=== PATIENT | female | born 1990 | race Caucasian/White ===

== ENCOUNTER 2020-01-22 20:21 | Emergency (ER) | payer MEDICAID, OTHER ==
[~2020-01-22] VITALS: Ht 144.8 cm; Wt 72.6 kg
[2020-01-22 20:25] VITALS: BP 123/74
--- NOTE | 2020-01-22 20:25 | NUR ---
TO BED # 11 AMBULATORY
--- NOTE | 2020-01-22 20:55 | NUR ---
Dr. Hodge examining patient.
--- NOTE | 2020-01-22 21:11 | NUR ---
29 YEAR OLD FEMALE COMPLAINS OF RASH X 2 WEEKS. PATIENT WITH VISIBLE RED RASH IN BILATERAL LOWER EXTREMITIES. PATIENT STATES IT IS BURNING AND ITCHING. PATIENT HAS NO OTHER COMPLAINTS AT THIS TIME. PATIENT AOX4, BREATHING EVEN AND UNLABORED, SKIN WARM AND DRY. BED IN LOWEST POSITION, LOCKED, BED RAIL UPX1. PMH - DENIES ALLERGIES - NKA
[2020-01-22 21:22] LABS: BASOPHILS % (AUTO) 0.9 % (0.0-2.0); EOSINOPHILS % (AUTO) 1.2 % (0.0-4.0); HEMATOCRIT 25.2 % (36-48); HEMOGLOBIN 8.7 g/dL (12.0-16.0); LYMPHOCYTES # (AUTO) 0.9 K/uL (2.5-16.5); LYMPHOCYTES % (AUTO) 38.1 % (20.5-51.1); MEAN CORPUSCULAR HEMOGLOBIN 26 pg (27-31); MEAN CORPUSCULAR HGB CONC 34 g/dL (33-37); MEAN CORPUSCULAR VOLUME 76.4 fL (80-94); MONOCYTES # (AUTO) 0.1 K/uL (0.8-1.0); NEUTROPHILS # (AUTO) 1.3 K/uL (1.8-7.7); NEUTROPHILS % (AUTO) 53.8 % (42.2-75.2); PLATELET COUNT (AUTO) 168 K/uL (140-450); RED CELL DISTRIBUTION WIDTH 12.4 % (11.6-13.7); WHITE BLOOD COUNT (AUTO) 2.5 K/uL (4.8-10.8)
[2020-01-22 21:30] LABS: APPEARANCE,URINE CLEAR (CLEAR); BILIRUBIN,URINE NEGATIVE (NEGATIVE); BLOOD, URINE 3+ (NEGATIVE); COLOR,URINE YELLOW (YELLOW); LEUKOCYTE ESTERASE ,URINE NEGATIVE (NEGATIVE); NITRITE, URINE NEGATIVE (NEGATIVE); UGLUCOSE NEGATIVE (NEGATIVE)
[2020-01-22 21:40] LABS: PROTHROMBIN TIME 10.4 secs (10.8-13.4)
[2020-01-22 21:46] LABS: HYALINE CASTS, URINE 0-10 /LPF (None Seen); WBC,URINE 0-5 /HPF (0-5)
[2020-01-22 21:49] LABS: CARBON DIOXIDE 21.1 mmol/L (21-32); CREATININE 2.6 mg/dL (0.6-1.3); POTASSIUM 4.1 mmol/L (3.5-5.1); TOTAL BILIRUBIN 0.2 mg/dL (0.0-1.0)
[2020-01-22 22:30] VITALS: BP 124/76
--- NOTE | 2020-01-22 22:30 | NUR ---
Patient discharged with v/s stable. Provided with copy of labs. Written and verbal after care instructions given and explained. Patient alert, oriented and verbalized understanding of instructions. Ambulatory with steady gait. All questions addressed prior to discharge. ID band removed. Patient advised to follow up with PMD. Rx of Prednisone given. Patient educated on indication of medication including possible reaction and side effects. Opportunity to ask questions provided and answered.
== END 2020-01-22 22:30 | disposition home or self-care (01) ==
LOC: MED 20:21
DX: D69.2 Other nonthrombocytopenic purpura (principal)
CPT/HCPCS: 36415; 80053; 81001; 81025; 85025; 85610; 85730; 86886; 86900; 86901; 87086; 99283

== ENCOUNTER 2020-01-26 23:45 | Emergency (ER) | payer MEDICAID ==
[~2020-01-26] VITALS: Ht 144.8 cm; Wt 69.4 kg
[2020-01-26 23:50] VITALS: BP 120/56
--- NOTE | 2020-01-26 23:50 | NUR ---
TO BED # 04 AMBULATORY
--- NOTE | 2020-01-27 00:15 | NUR ---
29 YEAR OLD FEMALE STATES SHE WANTED A FOLLOWUP WITH HER LABS THAT WERE DRAWN PREVIOUSLY. PATIENT STATES THAT FOR 2 WEEKS SHE HAD A RASH ON HER LEGS AND WAS TOLD BY A PREVIOUS ER DOCTOR TO GET HER LABS REDRAWN TODAY. PATIENT AOX4, BREATHING EVEN AND UNLABORED, SKIN WARM AND DRY. BED IN LOWEST POSITION, LOCKED, BED RAIL UPX1. PMH - DENIES ALLERGIES - NKA
[2020-01-27 00:32] LABS: EOSINOPHILS % (AUTO) 0.8 % (0.0-4.0); MONOCYTES # (AUTO) 0.2 K/uL (0.8-1.0); RED BLOOD CELL COUNT(AUTO) 3.18 MIL/uL (4.20-5.40)
[2020-01-27 00:36] LABS: BASOPHILS % (AUTO) 0.7 % (0.0-2.0); HEMATOCRIT 24.4 % (36-48); HEMOGLOBIN 8.3 g/dL (12.0-16.0); LYMPHOCYTES # (AUTO) 0.8 K/uL (2.5-16.5); LYMPHOCYTES % (AUTO) 37.8 % (20.5-51.1); MEAN CORPUSCULAR HEMOGLOBIN 26 pg (27-31); MEAN CORPUSCULAR HGB CONC 34 g/dL (33-37); MEAN CORPUSCULAR VOLUME 76.6 fL (80-94); MONOCYTES % (AUTO) 7.1 % (1.7-9.3); NEUTROPHILS # (AUTO) 1.2 K/uL (1.8-7.7); NEUTROPHILS % (AUTO) 53.6 % (42.2-75.2); PLATELET COUNT (AUTO) 141 K/uL (140-450); RED CELL DISTRIBUTION WIDTH 12.5 % (11.6-13.7)
[2020-01-27 00:46] LABS: ALBUMIN 2.8 g/dL (3.4-5.0); ANION GAP 10.6 (8-16); CREATININE 2.2 mg/dL (0.6-1.3); POTASSIUM 4.6 mmol/L (3.5-5.1); TOTAL BILIRUBIN 0.2 mg/dL (0.0-1.0)
[2020-01-27 00:49] LABS: PROTHROMBIN TIME 10.4 secs (10.8-13.4)
[2020-01-27 00:52] LABS: WHITE BLOOD COUNT (AUTO) 2.2 K/uL (4.8-10.8)
[2020-01-27 01:28] VITALS: BP 121/67
--- NOTE | 2020-01-27 01:28 | NUR ---
Patient discharged with v/s stable. 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 Patient verbalized understanding. Ambulatory with steady gait. All questions addressed prior to discharge. Advised to follow up with PMD.
== END 2020-01-27 01:28 | disposition home or self-care (01) ==
LOC: MED 23:45
DX: R21 Rash and other nonspecific skin eruption (principal)
CPT/HCPCS: 36415; 80053; 85025; 85610; 99283

== ENCOUNTER 2020-05-15 16:45 | Inpatient (IN) | payer OTHER, SELFPAY ==
[~2020-05-15] VITALS: Ht 144.8 cm; Wt 73.0 kg
[2020-05-15 17:13] VITALS: BP_SYST 133; BP_SYST 89; BP_DIAS 64; BP_DIAS 89
[2020-05-15] MEDS ORDERED: NACL 0.9% 1,000 ML IV ONE ×2 (17:20→18:25)
[2020-05-15 17:39] LABS: BASOPHILS % (AUTO) 0.8 % (0.0-2.0); EOSINOPHILS % (AUTO) 0.3 % (0.0-4.0); HEMATOCRIT 20.2 % (36-48); LYMPHOCYTES # (AUTO) 0.9 K/uL (2.5-16.5); LYMPHOCYTES % (AUTO) 32.8 % (20.5-51.1); MEAN CORPUSCULAR HEMOGLOBIN 25 pg (27-31); MEAN CORPUSCULAR HGB CONC 32 g/dL (33-37); MEAN CORPUSCULAR VOLUME 78.2 fL (80-94); MONOCYTES # (AUTO) 0.1 K/uL (0.8-1.0); NEUTROPHILS # (AUTO) 1.7 K/uL (1.8-7.7); NEUTROPHILS % (AUTO) 61.1 % (42.2-75.2); PLATELET COUNT (AUTO) 146 K/uL (140-450); RED BLOOD CELL COUNT(AUTO) 2.58 MIL/uL (4.20-5.40); RED CELL DISTRIBUTION WIDTH 14.1 % (11.6-13.7); WHITE BLOOD COUNT (AUTO) 2.8 K/uL (4.8-10.8)
--- NOTE | 2020-05-15 17:45 | NUR ---
TO BED 11
--- NOTE | 2020-05-15 17:50 | NUR ---
29 Y/O FEMALE C/O FLANK PAIN X2 DAYS, RADIATING TO ABD + NAUSEA. DENIES ANY VOMITING/COUGH/SOB. PT STATES SHE WAS RECENTLY DIAGNOSED WITH LUPUS THREE MONTHS AGO AND CANNOT RECALL WHAT MEDS SHE WAS PRESCRIBED, BUT DID NOT TAKE MEDICATIONS. VSS. DENIES ANY UTI SYMPTOMS. STATES HER URINE HAS BEEN PINK-TINGED ON/OFF. RESP EVEN AND UNLABORED. LUNG SOUNDS CLEAR IN BILAT LOBES PMH: LUPUS
[2020-05-15 17:54] LABS: HEMOGLOBIN 6.5 g/dL (12.0-16.0)
[2020-05-15 18:06] LABS: ALBUMIN 2.4 g/dL (3.4-5.0); ANION GAP 15.6 (8-16); CARBON DIOXIDE 19.5 mmol/L (21-32); POTASSIUM 5.1 mmol/L (3.5-5.1); TOTAL BILIRUBIN 0.3 mg/dL (0.0-1.0)
[2020-05-15 18:09] LABS: CREATININE 5.6 mg/dL (0.6-1.3)
[2020-05-15] MEDS ORDERED: ONDANSETRON 4 MG/2 ML VIAL IM/IVP PRN (18:35)
[2020-05-15] MEDS ORDERED: ACETAMINOPHEN 325 MG TAB PO PRN (18:35)
[2020-05-15] MEDS ORDERED: DOCUSATE SODIUM 100 MG GELCAP PO PRN (18:35)
[2020-05-15] MEDS ORDERED: MORPHINE SULFATE 2 MG/ML SYR IVP PRN (18:35)
--- NOTE | 2020-05-15 19:10 | NUR ---
REPORT RECEIVED FROM [facility] FOR CONTINUATION OF CARE.
--- NOTE | 2020-05-15 19:34 | NUR ---
PT AMBULATED TO RESTROOM W/ STEADY GAIT.
[2020-05-15 19:43] LABS: PROTHROMBIN TIME 10.1 secs (10.8-13.4)
[2020-05-15 19:44] LABS: MAGNESIUM 1.7 mg/dL (1.8-2.4); PHOSPHORUS 6.9 mg/dL (2.5-4.9); THYROID STIMULATING HORMONE 1.1 uIU/mL (0.34-3.74)
[2020-05-15 19:52] LABS: BILIRUBIN,URINE 1+ (NEGATIVE); BLOOD, URINE 3+ (NEGATIVE); COLOR,URINE YELLOW (YELLOW); LEUKOCYTE ESTERASE ,URINE TRACE (NEGATIVE); NITRITE, URINE NEGATIVE (NEGATIVE); PH,URINE 6.5 (5.0-9.0); UGLUCOSE NEGATIVE (NEGATIVE)
[2020-05-15 19:54] LABS: APPEARANCE,URINE HAZY (CLEAR)
[2020-05-15 20:04] LABS: RBC,URINE TOO NUMEROUS TO COUN /HPF (0-5)
[2020-05-15 20:05] LABS: BARBITURATE, URINE NEGATIVE ng/ml (NEG <=200); BENZODIAZEPINE, URINE NEGATIVE ng/mL (NEG <=200); CANNABINOID, URINE NEGATIVE ng/mL (NEG <=50); COCAINE, URINE NEGATIVE ng/mL (NEG <=300); OPIATE, URINE NEGATIVE ng/mL (NEG <=2000); PHENCYCLIDINE SCREEN,URINE NEGATIVE ng/mL (NEG <=25)
--- NOTE | 2020-05-15 20:22 | NUR ---
Patient will be admitted to care of DR. WALKER. Admited to TELEMETRY. Will go to room 120B. Belongings list completed. Report to [facility].
--- NOTE | 2020-05-15 20:22 | NUR ---
ADMITTED 29, F, VIA GURNEY FROM [facility]. NO SOB. DENIES PAIN. INITIAL ASSESSMENT DONE. MRSA SWAB DONE AND COVID SWAB DONE. RAC 20G NOTED, INTACT AND PATENT. WILL TRANSFUSE BLOOD ONCE IT'S READY. DROPLET ISOLATION PRECAUTION IN PLACE. PLAN OF CARE WAS DISCUSSED. CALL LIGHT WITHIN REACH. WILL CONTINUE TO MONITOR.
[2020-05-15] MEDS: NACL 0.9% 1,000 ML IV SCH (21:56)
[2020-05-15] MEDS ORDERED: MAGNESIUM OXIDE 400 MG TAB PO ONE (23:10)
--- NOTE | 2020-05-15 23:45 | NUR ---
STARTED 1 PACKED RBC TRANSFUSION. NO A/R NOTED. TOLERATED WELL. WILL CONTINUE TO MONITOR AND CHECKED V/S PER PROTOCOL.
[2020-05-16] VITALS: BP 134/69
--- NOTE | 2020-05-16 | NUR ---
STAYED WITH THE PATIENT. AND OBSERVED FOR ANY REACTION. NO A/R NOTED. NO SOB. DENIES PAIN. PATIENT IS CALM AND COMFORTABLE AND AWAKE. WILL CONTINUE TO MONITOR.
--- NOTE | 2020-05-16 02:45 | NUR ---
BLOOD TRANSFUSION FINISHED. NO A/R NOTED. NO SOB. WILL CONTINUE TO MONITOR
[2020-05-16 04:00] VITALS: BP 128/83
--- NOTE | 2020-05-16 04:00 | NUR ---
PATIENT IS RESTING. DENIES PAIN. CALL LIGHT WITHIN REACH.
[2020-05-16] MEDS: NACL 0.9% 1,000 ML IV SCH ×3 (05:00→15:56)
--- NOTE | 2020-05-16 06:45 | NUR ---
PATIENT IS TACHYCARDIC ON THE 120'S-127. DR. PEREZ IS AWARE. PATIENT IS NOT IN ANY ACUTE DISTRESS, COOPERATIVE AND CALM. WILL ENDORSED TO AM SHIFT RN FOR CONTINUITY OF CARE.
--- NOTE | 2020-05-16 07:23 | NUR ---
RECEIVED BEDSIDE REPORT FROM ARTILLERY SPECIALIST NURSE, FOR CONTINUITY OF CARE. PT IS AA&OX4, AMERICAN SPEAKING. RESPIRATIONS ARE EVEN AND UNLABORED, BREATHING TO RA. SKIN COLOR APPROPRIATE FOR ETHNICITY. RAC 20G IV IS PATENT AND INTACT, RUNNING ORDERED. PT IS AWARE URINE SAMPLE IS NEEDED. REVIEWED PLAN OF CARE WITH PT, WITH PT VERBALIZING UNDERSTANDING. SAFETY MEASURES IN PLACE; CALL LIGHT WITHIN REACH, BED IN LOW POSITION, SIGNS POSTED. TELE MONITOR ATTACHED. NO DISTRESS NOTED. WILL CONTINUE TO MONITOR.
[2020-05-16 08:00] VITALS: BP 132/82
[2020-05-16 08:31] LABS: BASOPHILS % (AUTO) 0.8 % (0.0-2.0); HEMATOCRIT 22.7 % (36-48); HEMOGLOBIN 7.4 g/dL (12.0-16.0); LYMPHOCYTES # (AUTO) 1.2 K/uL (2.5-16.5); LYMPHOCYTES % (AUTO) 36.5 % (20.5-51.1); MEAN CORPUSCULAR HEMOGLOBIN 26 pg (27-31); MEAN CORPUSCULAR HGB CONC 33 g/dL (33-37); MEAN CORPUSCULAR VOLUME 79.6 fL (80-94); MONOCYTES # (AUTO) 0.2 K/uL (0.8-1.0); MONOCYTES % (AUTO) 5.5 % (1.7-9.3); NEUTROPHILS # (AUTO) 1.9 K/uL (1.8-7.7); NEUTROPHILS % (AUTO) 57.2 % (42.2-75.2); PLATELET COUNT (AUTO) 126 K/uL (140-450); RED BLOOD CELL COUNT(AUTO) 2.85 MIL/uL (4.20-5.40); RED CELL DISTRIBUTION WIDTH 14.9 % (11.6-13.7); WHITE BLOOD COUNT (AUTO) 3.3 K/uL (4.8-10.8)
[2020-05-16 09:27] LABS: ANION GAP 16.8 (8-16); POTASSIUM 4.8 mmol/L (3.5-5.1)
[2020-05-16] MEDS: BENZONATATE 100 MG CAPLF PO SCH ×3 (09:27→19:09)
[2020-05-16 09:29] LABS: CREATININE 5.1 mg/dL (0.6-1.3)
--- NOTE | 2020-05-16 09:30 | NUR ---
RECEIVED A CALL FROM LAB REPORTING A CRITICAL LAB; CREATININE: 5.1. SCHEDULED PO MEDICATION GIVEN. PT TOLERATED PO MED WELL. MEDICATION EDUCATION PROVIDED. URINE SPECIMEN COLLECTED, WILL BRING TO LAB. NO DISRRTRESS NPTED. WILL CONTINUE TO MONITOR.
[2020-05-16 11:06] LABS: CHOL/HDL RATIO 7.1 (1-4.5)
[2020-05-16 11:14] LABS: MAGNESIUM 1.6 mg/dL (1.8-2.4); PHOSPHORUS 5.9 mg/dL (2.5-4.9)
[2020-05-16 12:00] VITALS: BP 135/78
[2020-05-16 12:40] LABS: URINE TOTAL PROTEIN 964.1 mg/dL (0-12)
--- NOTE | 2020-05-16 14:07 | NUR ---
SCHEDULED PO MEDICATION GIVEN. PT TOLERATED PO MED WELL. MEDICATION EDUCATION PROVIDED. NO DISTRESS NOTED. WILL CONTINUE TO MONITOR.
--- NOTE | 2020-05-16 14:45 | NUR ---
PT'S IV INFILTRATED. WILL ATTEMPT REINSERTION.
--- NOTE | 2020-05-16 15:55 | NUR ---
NEW IV SITE ESTABLISHED; RT HAND, 22G.
[2020-05-16 16:00] VITALS: BP 130/83
[2020-05-16] MEDS ORDERED: SODIUM FERRIC GLUCONATE 125 MG in NACL 0.9% 100 ML IV SCH (16:00)
--- NOTE | 2020-05-16 16:59 | NUR ---
IV FERRLECIT, HUNG, AND RUNNING PER ORDERS. INFLUENZA A/B SPECIMEN COLLECTED. PT INSTRUCTED ON 24 HR URINE COLLECTION. HAT IN PLACE. PT IS AWARE TO INFORM NURSE WHEN SHE VOIDS. NO DISTRESS NOTED. WILL CONTINUE TO MONITOR.
[2020-05-16] MEDS ORDERED: MAG SULF 2000 MG/WATER PREMIX 100 ML IV SCH (17:00)
--- NOTE | 2020-05-16 18:08 | NUR ---
PT IS OFF UNIT FOR VQ LUNG SCAN.
[2020-05-16] MEDS: methylPREDNISolone SS 125 MG/2 ML VIAL IVP SCH (19:05)
--- NOTE | 2020-05-16 19:08 | NUR ---
PT'S SCHEDULED MEDICATIONS GIVEN. MAGNESIUM HUNG, AND RUNNING PER ORDERS. PT COMPLAINS OF COUGH AND STATES THAT SHE FEELS LIKE SHE "IS GOING TO SUFFOCATE" WHEN SHE LIES DOWN, AND FEELS LIKE SHE NEEDS TO BE SITTING UP TO BREATH. DR HENDRICKS AWARE. PER DR SANTO, O2 CAN BE STARTED AT 2LPM VIA NC. WILL ENDORSE TO ROAD SERVICE LOCKSMITH NURSE.
--- NOTE | 2020-05-16 19:25 | NUR ---
ENDORSED TO VICE PROVOST NURSE FOR CONTINUITY OF CARE. PT IS IN STABLE CONDITION.
--- NOTE | 2020-05-16 19:25 | NUR ---
RECEIVED PT AAOX4 , W/ ON AND OFF VERY SLIGHTLY PT'S DESCRIBE - WILL REFER TO RT ON DUTY FOR FURTHER ASSESSMENT AND RESPITORY. MGT . O2 SAT BET 91 AND 93% - WILL UPDATE THE AMIRA . FOR 24HRS URINE COLLECTION RE INSTRUCTED TO PT. W/ ON GOING MAG . RIDER - IV SITE INTACT AND PATENT . SAFETY MEASURE IN PLACE - CALL LIGHT WITHIN REACH . ON TELE MONITOR - HIGHTEST TRACING ON TELE MONITOR - IS 146 - NO C/O OF CHEST PAIN.- DENIES ANY PAIN . PLAN OF CARE DISCUSSED AND VERBALIZE UNDERSTANDING . FOR CLOSELY WATCH .
[2020-05-16 19:38] LABS: BASOPHILS % (AUTO) 0.7 % (0.0-2.0); EOSINOPHILS % (AUTO) 0.1 % (0.0-4.0); HEMOGLOBIN 7.4 g/dL (12.0-16.0); LYMPHOCYTES # (AUTO) 1.5 K/uL (2.5-16.5); LYMPHOCYTES % (AUTO) 41.4 % (20.5-51.1); MEAN CORPUSCULAR HEMOGLOBIN 26 pg (27-31); MEAN CORPUSCULAR HGB CONC 32 g/dL (33-37); MEAN CORPUSCULAR VOLUME 80.1 fL (80-94); MONOCYTES # (AUTO) 0.2 K/uL (0.8-1.0); MONOCYTES % (AUTO) 5.2 % (1.7-9.3); NEUTROPHILS % (AUTO) 52.6 % (42.2-75.2); PLATELET COUNT (AUTO) 128 K/uL (140-450); RED BLOOD CELL COUNT(AUTO) 2.87 MIL/uL (4.20-5.40); RED CELL DISTRIBUTION WIDTH 15.5 % (11.6-13.7); WHITE BLOOD COUNT (AUTO) 3.7 K/uL (4.8-10.8)
[2020-05-16 20:00] VITALS: BP 113/96
--- NOTE | 2020-05-16 20:23 | NUR ---
PT WAS PLACED ON 2LNC HR 123 SPO2 98%
--- NOTE | 2020-05-16 20:35 | NUR ---
ASSESED BY RT - RT PUT PT . ON O2 AT 2LPM/NC - AMIRA - INFORM. WILL CONT. TO MONITOR.
--- NOTE | 2020-05-16 21:00 | NUR ---
AFTER PT PUT ON O2 AT 2LPM/NC HER HR TRENDING DOWN FROM 14O'S TO 12O'S - FOR CLOSELY WATCH . - UPDATE AMIRA.PT. DENIES ANY PAIN . 02 SAT 96%. ON TELE MONITOR.
--- NOTE | 2020-05-16 21:21 | NUR ---
MAG . RIDER CONSUMED - RE HOOK NSS AND REGULATED ORDERED - FOR CLOSELY WATCH.
--- NOTE | 2020-05-16 22:00 | NUR ---
MADE ROUNDS , NO COMPLAIN MADE AT THIS TIME . O2 SAT WNL . ON TELE MONITOR . MONITOR U.O - ON CLOSELY WATCH .
[2020-05-17] VITALS: BP 115/85
--- NOTE | 2020-05-17 | NUR ---
MADE ROUNDS . NO COMPLAIN MADE P- O2 SAT WNL . ON TELE MONITOR .- HR 111. FOR CLOSELY WATCH .
--- NOTE | 2020-05-17 01:52 | NUR ---
MADE ROUNDS /. RESTING ON BED . O2 SAT WNL . ON CLOSELY WATCH .
[2020-05-17 04:00] VITALS: BP 130/92
--- NOTE | 2020-05-17 04:00 | NUR ---
MADE ROUNDS , NO S/SX OF ACUTE DISTRESS NOTED . ON TELE MONITOR .
[2020-05-17] MEDS: NACL 0.9% 1,000 ML IV SCH ×2 (05:16→11:57)
--- NOTE | 2020-05-17 06:00 | NUR ---
NO COMPLAIN MADE - REMINDS HER TO CALL THE NOD - STILL FOR 24HRS URINE COLLECTION - WILL ENDORSE.
[2020-05-17 06:36] LABS: BASOPHILS % (AUTO) 0.8 % (0.0-2.0); HEMATOCRIT 22.4 % (36-48); HEMOGLOBIN 7.3 g/dL (12.0-16.0); LYMPHOCYTES # (AUTO) 0.6 K/uL (2.5-16.5); MEAN CORPUSCULAR HEMOGLOBIN 26 pg (27-31); MEAN CORPUSCULAR HGB CONC 33 g/dL (33-37); MONOCYTES # (AUTO) 0.1 K/uL (0.8-1.0); MONOCYTES % (AUTO) 4.7 % (1.7-9.3); NEUTROPHILS # (AUTO) 1.4 K/uL (1.8-7.7); NEUTROPHILS % (AUTO) 65.5 % (42.2-75.2); PLATELET COUNT (AUTO) 135 K/uL (140-450); RED BLOOD CELL COUNT(AUTO) 2.79 MIL/uL (4.20-5.40); RED CELL DISTRIBUTION WIDTH 15.2 % (11.6-13.7); WHITE BLOOD COUNT (AUTO) 2.2 K/uL (4.8-10.8)
[2020-05-17 06:53] LABS: ANION GAP 17.4 (8-16); CARBON DIOXIDE 14.9 mmol/L (21-32); POTASSIUM 5.3 mmol/L (3.5-5.1)
--- NOTE | 2020-05-17 06:55 | NUR ---
RELEY TO DR. SANTO THE LATEST CREATININE RESULT 4.8 - NO FURTHER ORDERS MADE AT THIS TIME.
[2020-05-17 06:56] LABS: CREATININE 4.8 mg/dL (0.6-1.3)
[2020-05-17 06:59] LABS: MAGNESIUM 2.3 mg/dL (1.8-2.4); PHOSPHORUS 6.9 mg/dL (2.5-4.9)
--- NOTE | 2020-05-17 07:20 | NUR ---
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
--- NOTE | 2020-05-17 07:25 | NUR ---
RECEIVED BEDSIDE REPORT FROM NIGHTSHIFT NURSE. PT RESTING IN BED. RESPIRATIONS EVEN AND UNLABORED WITH NO SOB OR RESPIRATORY DISTRESS. SKIN WARM AND DRY TO TOUCH R HAND 22G IS CLEAN, DRY, AND INTACT. SAFETY MEASURES IN PLACE. WILL CONTINUE TO MONITOR
[2020-05-17 08:00] VITALS: BP 147/91
[2020-05-17 08:09] LABS: FOLIC ACID 6.7 ng/mL (>3.0)
--- NOTE | 2020-05-17 09:13 | NUR ---
PATIENT HAS BEEN SCREENED AND CATEGORIZED MODERATE NUTRITION RISK. PATIENT WILL BE SEEN WITHIN 3-5 DAYS OF ADMISSION. 05/18/20 05/20/[address]
--- NOTE | 2020-05-17 09:30 | NUR ---
ADMINISTERED SCHED MED PRESCRIBED PER MD ORDER. PT TOLERATED WELL. MEDICATION EDUCATION PERFORMED. PT RETURNED DEMONSTRATION. SAFETY MEASURES IN PLACE. WILL CONTINUE TO MONITOR
[2020-05-17] MEDS: BENZONATATE 100 MG CAPLF PO SCH ×3 (09:38→16:52)
--- NOTE | 2020-05-17 09:50 | NUR ---
PT SIGNED AUTHORIZATION OF DISCLOSURE OF MEDICAL INFORMATION FROM [facility] CONSENT FORM. PILLING MACHINE OPERATOR SENT FORM OUT. AWAITING INFORMATION. SAFETY MEASURES IN PLACE. WILL CONTINUE TO MONITOR
--- NOTE | 2020-05-17 11:15 | NUR ---
HOURLY ROUNDING. PT RESTING IN BED. FLACC 0. RESPIRATIONS EVEN AND UNLABORED WITH NO SOB OR RESPIRATORY DISTRESS. SKIN WARM AND DRY TO TOUCH. SAFETY MEASURES IN PLACE. WILL CONTINUE TO MONITOR
[2020-05-17 12:00] VITALS: BP 145/94
--- NOTE | 2020-05-17 13:09 | NUR ---
ADMINISTERED SCHED MED PRESCRIBED PER MD ORDER. PT TOLERATED WELL. MEDICATION EDUCATION PERFORMED. PT RETURNED DEMONSTRATION. SAFETY MEASURES IN PLACE. WILL CONTINUE TO MONITOR
--- NOTE | 2020-05-17 13:19 | NUR ---
INFORMED PT THAT WE NEED STOOL SAMPLE FROM HER. PT VERBALIZED UNDERSTANDING. HAT PLACED ON TOILET. SAFETY MEASURES IN PLACE. WILL CONTINUE TO MONITOR
--- NOTE | 2020-05-17 15:38 | NUR ---
HOURLY ROUNDING. PT RESTING IN BED AND TALKING TO FAMILY ON THE PHONE. RESPIRATIONS EVEN AND UNLABORED WITH NO SOB OR RESPIRATORY DISTRESS. SKIN WARM AND DRY TO TOUCH. SAFETY MEASURES IN PLACE. WILL CONTINUE TO MONITOR
[2020-05-17 16:00] VITALS: BP 131/85
[2020-05-17] MEDS: methylPREDNISolone SS 125 MG/2 ML VIAL IVP SCH (16:53)
--- NOTE | 2020-05-17 17:00 | NUR ---
C-DIFF AND STOOL CULTURE SAMPLE COLLECTED AND SENT TO LAB. PT TOLERATED WELL. SAFETY MEASURES IN PLACE. WILL CONTINUE TO MONITOR
[2020-05-17] MEDS: SODIUM BICARBONATE 8.4% 50 MEQ in NACL 0.45% 1,000 ML IV SCH (17:18)
--- NOTE | 2020-05-17 17:20 | NUR ---
ADMINISTERED SCHED MED PRESCRIBED PER MD ORDER. PT TOLERATED WELL. MEDICATION EDUCATION PERFORMED. PT RETURNED DEMONSTRATION. SAFETY MEASURES IN PLACE. WILL CONTINUE TO MONITOR
--- NOTE | 2020-05-17 18:26 | NUR ---
HOURLY ROUNDING. PT RESTING IN BED. RESPIRATIONS EVEN AND UNLABORED WITH NO SOB OR RESPIRATORY DISTRESS. SKIN WARM AND DRY TO TOUCH. SAFETY MEASURES IN PLACE. WILL CONTINUE TO MONITOR
--- NOTE | 2020-05-17 19:27 | NUR ---
ENDORSED AT BEDSIDE TO NIGHTSHIFT NURSE FOR CONTINUITY OF CARE. PT IS STABLE
--- NOTE | 2020-05-17 19:30 | NUR ---
RECEIVED REPORT AT BEDSIDE FOR Sabrina LUNDY RN DAYSHIFT NURSE. PT IS AOX4 ON 2 LITERS N/C. SHE DENIES PAIN AT THIS TIME IV SITE 22G IN RIGHT HAND INTACT AND ASYMPTOMATIC V/S FOLLOWS: T 97.6 P 108 R 18 B/P 142/80 02 96% WITH 2 LITERS N/C.
[2020-05-17 20:00] VITALS: BP 142/80
--- NOTE | 2020-05-17 21:00 | NUR ---
24 HR URINE COLLECTION DONE AND SENT TO LAB.
[2020-05-18] VITALS: BP 141/85
--- NOTE | 2020-05-18 | NUR ---
PT IN BED RESTING V/S FOLLOWS: T 97.6 P 101 B/P 141/85 02 96%W 2 LITERS VIA N/C. BICARB FLUIDS RECONSTITUTED AND HUNG IT S RUNNING ORDERED AT 150MLS/HR.
[2020-05-18] MEDS: SODIUM BICARBONATE 8.4% 50 MEQ in NACL 0.45% 1,000 ML IV SCH ×4 (01:07→20:40)
[2020-05-18 04:00] VITALS: BP 143/94
--- NOTE | 2020-05-18 04:00 | NUR ---
PT IN BED NO S/S OF PAIN OR DISTRESS NOTED V/S FOLLOWS; T 97 P 96 R 18 B/P 143/94 02 97% WITH 2 LITERS VIA N/C.
[2020-05-18] MEDS ORDERED: BENZONATATE 100 MG CAPLF PO ONE (06:08)
[2020-05-18 06:45] LABS: BASOPHILS % (AUTO) 0.4 % (0.0-2.0); HEMATOCRIT 21.8 % (36-48); HEMOGLOBIN 7.2 g/dL (12.0-16.0); LYMPHOCYTES # (AUTO) 0.8 K/uL (2.5-16.5); LYMPHOCYTES % (AUTO) 21.9 % (20.5-51.1); MEAN CORPUSCULAR HEMOGLOBIN 27 pg (27-31); MEAN CORPUSCULAR HGB CONC 33 g/dL (33-37); MEAN CORPUSCULAR VOLUME 80.5 fL (80-94); MONOCYTES # (AUTO) 0.2 K/uL (0.8-1.0); MONOCYTES % (AUTO) 4.5 % (1.7-9.3); NEUTROPHILS # (AUTO) 2.7 K/uL (1.8-7.7); NEUTROPHILS % (AUTO) 73.2 % (42.2-75.2); PLATELET COUNT (AUTO) 158 K/uL (140-450); RED BLOOD CELL COUNT(AUTO) 2.71 MIL/uL (4.20-5.40); RED CELL DISTRIBUTION WIDTH 15.9 % (11.6-13.7); WHITE BLOOD COUNT (AUTO) 3.7 K/uL (4.8-10.8)
[2020-05-18 07:08] LABS: ANION GAP 17.9 (8-16); POTASSIUM 4.9 mmol/L (3.5-5.1)
[2020-05-18 07:19] LABS: CREATININE 4.7 mg/dL (0.6-1.3)
--- NOTE | 2020-05-18 07:21 | NUR ---
RECEIVED CRITICAL LABS OF BUN 66, CALCIUM 7.3 AND CREATINE 4.7, WILL REPORT IT TO RESIDENT MD. TO FOLLOW UP.
--- NOTE | 2020-05-18 07:30 | NUR ---
RECEIVED REPORT AT BEDSIDE FROM NIGHTSHIFT NURSE SHANDRA. PT IS AOX4 ON 2 LITERS N/C. IN NO SIGNS OF RESPIRATORY DISTRESS. SHE DENIES PAIN AT THIS TIME. HAS IV SITE 22G IN RIGHT HAND INTACT AND ASYMPTOMATIC V/S FOLLOWS: T 146/95, RESPIRATIONS 18, 98 HEART RATE, 97.1F, 97% O2 SAT WITH 2 LITERS N/C. ALL NEEDS MET, CALL LIGHT WITHIN REACH. WILL CONTINUE TO MONITOR.
--- NOTE | 2020-05-18 07:43 | NUR ---
SPOKE WITH MD ANGLIN REGARDING CRITICAL LABS, SAID TO CALL HER BACK AFTER HE ROUNDS, WILL ENDORSE TO AM SHIFT TO FOLLOW UP.
[2020-05-18 08:00] VITALS: BP 146/95
[2020-05-18] MEDS: EPOETIN ALFA 4,000 UNITS/ML VIAL IV SCH (09:49)
--- NOTE | 2020-05-18 09:49 | NUR ---
MORNING MEDICATION EXPLAINED GIVEN, NO ADVERSE SIDE EFFECTS NOTED. PT DENIES ANY PAIN AT THIS TIME, ALL NEEDS MET, CALL LIGHT WITHIN REACH. WILL CONTINUE TO MONITOR.
[2020-05-18 12:00] VITALS: BP 138/82
--- NOTE | 2020-05-18 12:00 | NUR ---
ROUNDED ON PATIENT, IN NO S/S OF APPARENT RESPIRATORY DISTRESS. VITAL SIGNS ARE FOLLOWS 138/82, HR 104, TEMP 98.1F, RESPIRATIONS ELEVATED AT 30, O2 SATURATION 100% ON 2L/NC. PATIENT STATES THAT OCCASIONALLY SHE FEELS SHORTNESS OF BREATH. LUNG SOUNDS ARE CLEAR. PT COMPLAINS OF 5/10 DULL CONSTANT PAIN IN LOWER BACK, REPOSITIONED COMFORTABLY. ALL NEEDS MET, CALL LIGHT WITHIN REACH. WILL CONTINUE TO MONITOR.
--- NOTE | 2020-05-18 13:52 | NUR ---
REASSESSED PATIENT, COMPLAINS OF PAIN NOW 7/10 DULL CONSTANT LOWER BACK AREA. MORPHINE 1MG IVP GIVEN, REPOSITIONED COMFORTABLY. WILL REASSESS MEDICATION EFFECTIVENESS. ALL NEEDS MET, CALL LIGHT WITHIN REACH.
--- NOTE | 2020-05-18 15:12 | NUR ---
RECEIVED REPORT AT BEDSIDE FROM NIGHTSOKFT NURSE SHANDRA. PT IS AOX4 ON 2 LITERS N/C. IN NO SIGNS OF RESPIRATORY DISTRESS. SHE DENIES PAIN AT THIS TIME. HAS IV SITE 22G IN RIGHT HAND INTACT AND ASYMPTOMATIC V/S FOLLOWS: T 146/95, RESPIRATIONS 18, 98 HEART RATE, 97.1F, 97% O2 SAT WITH 2 LITERS N/C. ALL NEEDS MET, CALL LIGHT WITHIN REACH. WILL CONTINUE TO MONITOR. Addendum: 05/18/20 at 1735 by Josefina Rojas RN PLEASE DISREGARD NOTE. WRONG TIME.
--- NOTE | 2020-05-18 15:51 | NUR ---
DC PLANN[age] YRS OLD FEMALE PATIENT WAS ADMITTED FROM HOME WITH A DX OF ANEMIA, ACUTE RENAL FAILURE. PT HAS A HX OF LUPUS H/H 6.5/20.2 TRANSFUSED 1 UNIT PRBC .STARTED ON IVF .IV ABX ROCEPHIN . CONSULTED WITH DR PEÑA DOCTOR OF PODIATRIC MEDICINE . COVID TEST PENDING. DC PLAN TO GO HOME WHEN STABLE CM TO FOLLOW. Addendum: 05/19/20 at 1519 by Jessica Bentley CM DC PLANNING: COVID TEST NEGATIVE POST TRANSFUSION H/H 9.1/28.1. STARTED IV STEROIDS PUSE THERAPY. SEEN BY DOCTOR OF PODIATRIC MEDICINE DR MALDONADO CONTINUE IVF ,STARTED 24 HR URINE . DC PLAN DC HOME WHEN STABLE CM TO FOLLOW. Addendum: 05/20/20 at 1224 by Jessica Bentley CM DC PLANNING: FAXED THE REQUEST FOR HIGHER LEVEL TO [facility], [place], [facility] , [facility] AND CM TO FOLLOW Addendum: 05/20/20 at 1329 by Jessica Bentley CM DC PLANNING RECEIVED A CALL FROM [facility] SPOKE WITH [employer]TY HERNANDEZ THE INTERNAL MEDICINE IS AT [facility], NOT ACCEPTING ANY PATIENT AND TO CHECK TOMORROW CM TO FOLLOW Addendum: 05/20/20 at 1429 by Jessica Bentley CM DC PLANNING: RECEIVED A CALL FROM [facility] SPOKE WITH BRAYANPROVIDE 'S CELL PHONE .PER BRAYAN WORKING ON IT ONCE SHE HAS ACCEPTING DR WILL CALL BACK . CALLED [facility] SPOKE WITH [place] [place] MD'S CONTACT NUMBER WILL CHECK BED AVAILABILITY AT 2:30 AND WILL CALL BACK. Addendum: 05/20/20 at 1453 by Jessica Bentley CM DC PLANNING: RECEIVED A CALL FROM [facility] SPOKE WITH [employer] ,REQUESTED MD'S PHONE NUMBER AND PROVIDED THE RESIDENT'S NUMBER AND UPDATED PT'S INFO, ONCE THEY REVIEW WILL CALL BACK. ISATU TO FOLLOW. Addendum: 05/20/20 at 1624 by Jessica Bentley CM DC PLANNING: RECEIVED A CALL FROM [facility] SPOKE WITH [employer] STATED HAD AN ACCEPTING NEEDS TRANSFER AGREEMENT. FAXED THE SIGNED TRANSFER AGREEMENT. NOTIFIED XIMENA JEFFREY Addendum: 05/20/20 at 1647 by Jessica Bentley CM DC PLANNING: CALLED [facility] TRANSFER CENTER [phone] SPOKE WITH [employer] STATED RECEIVED THE TRANSFER AGREEMENT AND ONCE THEY HAVE A BED WILL CALL THE UNIT. PLACE THE TRANSPORT WILL CALL WITH OWEN. NOTIFIED XIMENA CHARGE NURSE. [facility] # [phone]
[2020-05-18 16:00] VITALS: BP 141/91
--- NOTE | 2020-05-18 16:13 | NUR ---
MUSHROOM SPAWN MAKER NOTE: Patient's Orientation Person Situation Place Time Information Provided By KEIRA REY Comments SW WAS UNABLE TO MEET PATIENT AT BEDSIDE DUE TO MEDICAL CONDITION. Production Mechanic, Realtionship and Phone Number KEIRA REY SIGNIFICANT OTHER [phone] Healthcare Power of Pharmacist Hospital No Does Patient Have a POLST No Identifying Problems No Social Work Triggers Is A Social Work Consult Needed No Mandate Report Filed No Explanation Of Identifying Problems PATIENT IS A 29-YEAR-OLD FEMALE ADMITTED FOR ANEMIA AND ACUTE RENAL FAILURE. PATIENT HAS PMHX OF LUPUS. Admitted From Home Pre-Admission Level Of Functioning Status Independent/Ambulatory Prior Resources/Services Used In Last 12 Months No Prior Resources Used Prior DME No Prior DME Used Living Situation Lives W/Significant Other House Patient Had Caregiver No Home Support No Caregiver Issues Financial Issues No Known Financial Issue Factors/Needs No D/C Needs Identified Pt/Rep Participated In Discharge Plan Yes Discharge Plan Comments TENTATIVE DISCHARGE PLAN IS FOR PATIENT TO RETURN HOME. DC Plan Status Initiated
[2020-05-18] MEDS ORDERED: methylPREDNISolone SS 125 MG/2 ML VIAL IVP SCH (16:15)
[2020-05-18] MEDS: methylPREDNISolone SS 125 MG/2 ML VIAL IVP SCH (17:40)
--- NOTE | 2020-05-18 17:45 | NUR ---
GAVE PATIENT PM MEDICATIONS, NO ADVERSE SIDE EFFECTS NOTED. NO COMPLAINTS OF PAIN AT THIS TIME. ALL NEEDS MET, WILL CONTINUE WITH PLAN OF CARE.
--- NOTE | 2020-05-18 19:00 | NUR ---
pt signed disclosure authorization form and faxed to [facility]. on fax machine noticed that [facility] had replied to fax stating "pt not found." Dr. Anderson aware.
--- NOTE | 2020-05-18 19:21 | NUR ---
ENDORSED AT BEDSIDE TO NIGHTSHIFT NURSE FOR CONTINUITY OF CARE. PT IS STABLE, NO SIGNS OF RESPIRATORY DISTRESS. NO COMPLAINTS OF PAIN AT THIS TIME.
--- NOTE | 2020-05-18 19:21 | NUR ---
RECEIVED PATIENT IN STABLE CONDITION FROM AM SHIFT NURSE FOR CONTINUITY OF CARE. TELE PATIENT. RESPIRATIONS EVEN, UNLABORED. CONTINUES ON O2 2L VIA NC, O2SAT 97%. NO C/O PAIN. NO S/S ACUTE DISTRESS. SKIN WARM, DRY. IV SITE TO RIGHT HAND 22G PATENT/INTACT, INFUSING FLUIDS WELL. CALL LIGHT WITHIN REACH.
[2020-05-18 20:00] VITALS: BP 141/87
--- NOTE | 2020-05-18 20:20 | NUR ---
1 UNIT OF PRBCs STARTED. PATIENT IS RESTING COMFORTABLY IN BED. NO C/O PAIN. NO S/S ACUTE DISTRESS. CALL LIGHT WITHIN REACH.
--- NOTE | 2020-05-18 22:00 | NUR ---
CONTINUE TO INFUSE PRBCs, PATIENT TOLERATING WELL. AFEBRILE. NO S/S ACUTE DISTRESS NOTED. CALL LIGHT WITHIN REACH.
--- NOTE | 2020-05-18 23:50 | NUR ---
PATIENT COMPLETED 1 UNIT OF PRBCs, TOLERATED WELL. NO C/O PAIN. NO S/S ACUTE DISTRESS. FLUIDS RESUMED ORDERED. CALL LIGHT WITHIN REACH.
[2020-05-19] VITALS: BP 144/97
[2020-05-19] MEDS: SODIUM BICARBONATE 8.4% 50 MEQ in NACL 0.45% 1,000 ML IV SCH ×3 (01:02→18:34)
--- NOTE | 2020-05-19 01:52 | NUR ---
PATIENT ASLEEP. NO C/O PAIN. NO S/S ACUTE DISTRESS. CALL LIGHT WITHIN REACH.
[2020-05-19 04:00] VITALS: BP 140/87
--- NOTE | 2020-05-19 04:46 | NUR ---
IV SITE TO RIGHT HAND INFILTRATED. NEW IV SITE STARTED ON LEFT AC, 20G USING ASEPTIC TECHNIQUE, GOOD BLOOD RETURN. PATIENT TOLERATED WELL. IV FLUIDS INFUSING WELL.
--- NOTE | 2020-05-19 07:19 | NUR ---
ENDORSED PATIENT IN STABLE CONDITION TO AM SHIFT NURSE FOR CONTINUITY OF CARE.
--- NOTE | 2020-05-19 07:24 | NUR ---
RECEIVED BEDSIDE REPORT FROM NIGHTSHIFT NURSE. PT RESTING IN BED. ABLE TO MAKE NEEDS KNOWN. RESPIRATIONS EVEN AND UNLABORED WITH NO SOB OR RESPIRATORY DISTRESS. SKIN WARM AND DRY TO TOUCH. IV SITE IN LAC 20G IS CLEAN, DRY, AND INTACT. SAFETY MEASURES IN PLACE. WILL CONTINUE TO MONITOR
[2020-05-19 08:00] VITALS: BP 145/78
[2020-05-19 08:25] LABS: BASOPHILS % (AUTO) 0.3 % (0.0-2.0); EOSINOPHILS % (AUTO) 0.1 % (0.0-4.0); HEMATOCRIT 28.1 % (36-48); HEMOGLOBIN 9.1 g/dL (12.0-16.0); LYMPHOCYTES # (AUTO) 1.1 K/uL (2.5-16.5); LYMPHOCYTES % (AUTO) 23.9 % (20.5-51.1); MEAN CORPUSCULAR HEMOGLOBIN 27 pg (27-31); MEAN CORPUSCULAR HGB CONC 32 g/dL (33-37); MEAN CORPUSCULAR VOLUME 82.5 fL (80-94); MONOCYTES # (AUTO) 0.2 K/uL (0.8-1.0); MONOCYTES % (AUTO) 5.1 % (1.7-9.3); NEUTROPHILS # (AUTO) 3.1 K/uL (1.8-7.7); NEUTROPHILS % (AUTO) 70.6 % (42.2-75.2); PLATELET COUNT (AUTO) 168 K/uL (140-450); RED BLOOD CELL COUNT(AUTO) 3.41 MIL/uL (4.20-5.40); RED CELL DISTRIBUTION WIDTH 16.4 % (11.6-13.7); WHITE BLOOD COUNT (AUTO) 4.4 K/uL (4.8-10.8)
[2020-05-19 08:36] LABS: ALBUMIN 2.2 g/dL (3.4-5.0); ANION GAP 17.1 (8-16); CARBON DIOXIDE 16.7 mmol/L (21-32); MAGNESIUM 1.9 mg/dL (1.8-2.4); POTASSIUM 4.8 mmol/L (3.5-5.1); TOTAL BILIRUBIN 0.3 mg/dL (0.0-1.0)
[2020-05-19] MEDS: ASCORBIC ACID 500 MG TAB PO SCH (08:37)
[2020-05-19] MEDS: CALCIUM ACETATE 667 MG TAB PO SCH ×3 (08:37→17:56)
[2020-05-19] MEDS: FERROUS SULFATE 325 MG TABEC PO SCH ×3 (08:37→17:56)
--- NOTE | 2020-05-19 08:45 | NUR ---
ADMINISTERED SCHED MED PRESCRIBED PER MD ORDER. PT TOLERATED WELL. MEDICATION EDUCATION PERFORMED. PT VERBALIZED UNDERSTANDING. SAFETY MEASURES IN PLACE. WILL CONTINUE TO MONITOR
--- NOTE | 2020-05-19 08:58 | NUR ---
RECEIVED CRITICAL LAB FROM CHEMISTRY. PT BUN 71 AND CR 4.1. REPORTED TO DR. STYLES. SAFETY MEASURES IN PLACE. WILL CONTINUE TO MONITOR
[2020-05-19 08:59] LABS: CREATININE 4.1 mg/dL (0.6-1.3)
[2020-05-19] MEDS: NACL 0.9% IV SCH (10:16)
[2020-05-19] MEDS: METHYLPREDNISOLONE SS IV SCH (10:16)
--- NOTE | 2020-05-19 10:25 | NUR ---
ADMINISTERED SCHED MED PRESCRIBED PER MD ORDER. PT TOLERATED WELL. MEDICATION EDUCATION PERFORMED. PT VERBALIZED UNDERSTANDING. SAFETY MEASURES IN PLACE. WILL CONTINUE TO MONITOR
--- NOTE | 2020-05-19 11:45 | NUR ---
HOURLY ROUNDING. PT RESTING IN BED. ABLE TO MAKE NEEDS KNOWN. RESPIRATIONS EVEN AND UNLABORED WITH NO SOB OR RESPIRATORY DISTRESS. SKIN WARM AND DRY TO TOUCH. SAFETY MEASURES IN PLACE. WILL CONTINUE TO MONITOR
[2020-05-19 12:00] VITALS: BP 145/74
--- NOTE | 2020-05-19 12:42 | NUR ---
ADMINISTERED SCHED MED PRESCRIBED PER MD ORDER. PT TOLERATED WELL. MEDICATION EDUCATION PERFORMED. PT VERBALIZED UNDERSTANDING. SAFETY MEASURES IN PLACE. WILL CONTINUE TO MONITOR
--- NOTE | 2020-05-19 15:21 | NUR ---
05/19/20 RD INITIAL ASSESSMENT COMPLETED PLEASE REFER TO NUTRITION ASSESSMENT UNDER CARE ACTIVITY FOR ESTIMATED NUTRITIONAL NEEDS. 1. CONTINUE RENAL DIET TOLERATED 2. RD PROVIDED NUTRITION EDUCATION ON MALINDA AND RENAL DIET 3. RD TO FOLLOW-UP 3-5 DAYS, MODERATE RISK CIELO YANG, RD
--- NOTE | 2020-05-19 15:45 | NUR ---
ENDORSED AT BEDSIDE TO DAYSHIFT NURSE FOR CONTINUITY OF CARE. PT IS STABLE
--- NOTE | 2020-05-19 15:46 | NUR ---
RECEIVED REPORT FROM KAMRON JEFFREY FOR CONTINUITY OF CARE. PT IN STABLE CONDITION AT THIS TIME.
[2020-05-19 16:00] VITALS: BP 146/90
--- NOTE | 2020-05-19 17:55 | NUR ---
PT HAVING DINNER IN BED. ALL NEEDS MET. WILL CONTINUE TO ROUND FREQUENTLY ON PT.
--- NOTE | 2020-05-19 19:10 | NUR ---
RECEIVED BEDSIDE REPORT FROM DAY SHIFT NURSE FOR CONTINUITY OF CARE. PT IS ALERT AND ORIENTED X 4. RESPIRATIONS ARE EVEN AND UNLABORED. CHEST RISE IS SYMMETRICAL. SHE IS ON 2 LITERS NC WITH O2 SATS OF 98%. SKIN IS WARM, DRY, AND INTACT. IV IS PATENT WITH NO SIGNS OF REDNESS OR SWELLING. SHE HAS A LEFT AC 20 GAUGE RUNNING SODIUM BICARB 1/2 NS AT 150 ML PER HOUR PER DOCTOR ORDER. BED WAS IN THE LOWEST POSITION AND CALL LIGHT IS WITHIN REACH. PT DENIES ANY PAIN. PT IS STABLE AT THIS TIME. DAY SHIFT NURSE INFORMED ME THAT THEY ARE AWAITING RESULTS FROM HER RENAL BIOPSY AT [facility] TO CONTINUE WITH THE PLAN OF CARE. WILL CONTINUE TO MONITOR.
--- NOTE | 2020-05-19 19:38 | NUR ---
ENDORSED PT TO MEDICAL VAN DRIVER FOR CONTINUITY OF CARE. PT IN STABLE CONDITION A THIS TIME.
--- NOTE | 2020-05-19 19:40 | NUR ---
RECEIVED BEDSIDE REPORT FROM AM SHIFT NURSE, PT A, AO X4, AMBULATORY. PT RESTING IN BED. ABLE TO MAKE NEEDS KNOWN. RESPIRATIONS EVEN AND UNLABORED WITH NO SOB OR RESPIRATORY DISTRESS. SKIN WARM AND DRY TO TOUCH. IV SITE IN LAC 20G IS CLEAN, DRY, AND INTACT. SAFETY MEASURES IN PLACE. WILL CONTINUE TO MONITOR
[2020-05-19 20:00] VITALS: BP 141/99
--- NOTE | 2020-05-19 23:00 | NUR ---
PT IS AWAKE AND LAYING IN BED WATCHING TV. PT REQUESTED TO USE THE RESTROOM WHERE SHE VOIDED. PT WAS ASSISTED BACK TO BED AND HOOKED BACK TO IV SODIUM BICARB NS RUNNING AT 150 ML PER HOUR. PT IS IN STABLE CONDITION AT THIS TIME.
--- NOTE | 2020-05-19 23:45 | NUR ---
CHECKED ON PATIENT, WENT TO THE BATHROOM, STABLE IN GAIT, NOT IN RESPIRATORY DISTRESS. PT HAS NO COMPLAINTS OF PAIN.
[2020-05-20] VITALS: BP 148/92
--- NOTE | 2020-05-20 | NUR ---
PT SLEEPING, NOT IN RESPIRATORY DISTRESS, NO COMPLAINTS OF PAIN, WILL CONTINUE TO MONITOR
[2020-05-20] MEDS: SODIUM BICARBONATE 8.4% 50 MEQ in NACL 0.45% 1,000 ML IV SCH ×3 (02:00→14:14)
--- NOTE | 2020-05-20 02:57 | NUR ---
ABLE TO AROUSE PATIENT THROUGH VERBAL STIMULI, PT SLEEPING AT THIS TIME, NO COMPLAINTS, NO S/ SX'S OF RESPIRATORY DISTRESS
[2020-05-20 04:00] VITALS: BP 158/92
[2020-05-20] MEDS: HYDROcodone/APAP 5/325 MG 1 TAB TAB PO PRN ×2 (04:50→14:01)
--- NOTE | 2020-05-20 04:50 | NUR ---
PT IS AWAKE AND ALERT. A&O X 4. PT HAS PAIN 6/10 IN HER LOWER BACK. STATES IT IS A DULL, ACHING PAIN. PT WAS GIVEN NORCO 5/325 MG TABLET. PT IS GOING BACK TO SLEEP AND WILL REASSESS PAIN AGAIN WITHIN THE HOUR.
--- NOTE | 2020-05-20 05:40 | NUR ---
PT'S PAIN WAS REASSESSED AND STATED AT A SCALE OF 3 OUT OF 10. SHE EXPLAINS THAT THE PAIN HAS BEEN GETTING BETTER OVER THE HOUR. THERE IS STILL SOME BEARABLE LOWER BACK PAIN THAT IS DULL AND ACHING. WILL CONTINUE TO MONITOR.
--- NOTE | 2020-05-20 06:24 | NUR ---
PT A A O X 4, AMBULATORY WITH STEADY GAIT, PT IN STABLE CONDITION AT THIS TIME. WILL ENDORSE TO NEXT SHIFT FOR CONTINUITY OF CARE.
--- NOTE | 2020-05-20 07:30 | NUR ---
RECEIVED PT AAOX4. NO SOB NOTED. NO C/O PAIN AT THIS TIME. IV TO LAC AND LAC PATENT AND INTACT. CHEST, DIMINISHED AIR ENTRY TO THE BASES. ABDOMEN SOFT, BOWEL SOUNDS PRESENT. NO EDEMA NOTED. INSTRUCTED PT TO CALL FOR ASSISTANCE, CALL LIGHT WITHIN REACH, VERBALIZED UNDERSTANDING.
[2020-05-20 07:34] LABS: HEMATOCRIT 26.1 % (36-48); HEMOGLOBIN 8.4 g/dL (12.0-16.0); MEAN CORPUSCULAR HEMOGLOBIN 26 pg (27-31); MEAN CORPUSCULAR HGB CONC 32 g/dL (33-37); MEAN CORPUSCULAR VOLUME 81.6 fL (80-94); PLATELET COUNT (AUTO) 175 K/uL (140-450); RED CELL DISTRIBUTION WIDTH 16.2 % (11.6-13.7); WHITE BLOOD COUNT (AUTO) 4.9 K/uL (4.8-10.8)
[2020-05-20 07:47] LABS: ANION GAP 16.6 (8-16); CARBON DIOXIDE 18.2 mmol/L (21-32); CREATININE 3.9 mg/dL (0.6-1.3); POTASSIUM 4.8 mmol/L (3.5-5.1)
[2020-05-20 07:56] LABS: MAGNESIUM 1.9 mg/dL (1.8-2.4)
[2020-05-20 07:57] LABS: PHOSPHORUS 6.7 mg/dL (2.5-4.9)
[2020-05-20 08:00] VITALS: BP 149/97
[2020-05-20] MEDS ORDERED: METOPROLOL 25 MG TAB PO SCH (09:00)
[2020-05-20] MEDS ORDERED: AZITHROMYCIN 250 MG TAB PO SCH (09:00)
[2020-05-20 09:20] LABS: BASOPHILS % (MANUAL) 0 % (0-2); EOSINOPHILS % (MANUAL) 0 % (0-4); LYMPHOCYTES % (MANUAL) 21 % (20-46); MONOCYTES % (MANUAL) 3 % (5-12)
[2020-05-20] MEDS: FERROUS SULFATE 325 MG TABEC PO SCH ×3 (09:35→17:29)
[2020-05-20] MEDS: CALCIUM ACETATE 667 MG TAB PO SCH ×3 (09:36→17:28)
[2020-05-20] MEDS: ASCORBIC ACID 500 MG TAB PO SCH (09:36)
[2020-05-20] MEDS: EPOETIN ALFA 4,000 UNITS/ML VIAL IV SCH (09:37)
[2020-05-20] MEDS ORDERED: ALBUTEROL SULFATE/IPRATROPIU 3 ML SOL IH PRN (11:15)
[2020-05-20] MEDS: METHYLPREDNISOLONE SS IV SCH (13:48)
[2020-05-20] MEDS: NACL 0.9% IV SCH (13:48)
[2020-05-20 13:55] VITALS: BP 151/104
[2020-05-20 16:00] VITALS: BP 149/99
--- NOTE | 2020-05-20 16:00 | NUR ---
pt resting. no sob noted. no complaints made. endorsed to [facility] for continuity of care.
--- NOTE | 2020-05-20 16:15 | NUR ---
RECIEVED PT. FROM DAY SHIFT RN, XIMENA, FOR CONTINUITY OF CARE. PT. IS AWAKE AND IN BED, AAOX4, AMBULATORY. SKIN INTACT. RESPIRATIONS EVEN AND UNLABORED, ON O2 2LPM VIA NC WITH SAO2 97%. NO SIGNS OF DISTRESS NOTED, PT. VERBALIZES NO PAIN. SAFETY PRECAUTIONS IN PLACE, DROPLET ISOLATION IN PLACE FOR R/O COVID-19. CALL LIGHT WITHIN REACH, POC DISCUSSED AND PT. VERBALIZES UNDERSTANDING. WILL CONTINUE TO MONITOR.
[2020-05-20 16:54] LABS: ANTI-NUCLEAR ANTIBODY TITER POSITIVE (Negative)
--- NOTE | 2020-05-20 16:54 | NUR ---
RECEIVED REPORT FROM CHARGE NURSE, XIMENA THAT PT. R/O COVID-19 IS D/C. WILL FOLLOW THROUGH.
[2020-05-20 16:55] LABS: ANTI DOUBLE STRANDED DNA AB >300 IU/mL (0 - 9)
--- NOTE | 2020-05-20 17:30 | NUR ---
DR. GOODMAN BY THE BEDSIDE. DISCHARGE TEACHINGS BY DR. GOODMAN GIVEN TO PT. AND UPDATES ON CONDITION. PT. VERBALIZES UNDERSTANDING. DR. GOODMAN SPOKE TO PT'S FAMILY THROUGH PHONE ABOUT PT'S CONDITION. WILL CONTINUE TO MONITOR.
--- NOTE | 2020-05-20 19:10 | NUR ---
ENDORSED TO V BELT CURER RN FOR CONTINUITY OF CARE.
--- NOTE | 2020-05-20 19:15 | NUR ---
RECEIVED PT IN STABLE CONDITION FROM AM NURSE. PT IS MED SURG. AWAKE,ALERT AND ORIENTED X4. ON O22L/NC. DENIES ANY DISCOMFORT NOR PAIN NOTED. HAS IVF INFUSING WELL ON THE RT HAND G#22. CLEAR AND PATENT. PLAN FOR TRANSFER TO ANOTHER HOSPITAL PT IS AWARE. BED ON LOW POSITION. CALL LIGHT WITHIN REACH WILL CONTINUE TO MONITOR.
--- NOTE | 2020-05-20 19:45 | NUR ---
ALESSANDRA PROCTOR DOOR TO DOOR LEAD GENERATION KE[place] AND SAID PT IS GOING TO [facility] T1 ROOM 369, ACCEPTING [facility].
--- NOTE | 2020-05-20 20:55 | NUR ---
CALLED [facility] , TALKED TO LEV. PT TO BE PICKED UP IN 45 MIN.
--- NOTE | 2020-05-20 21:40 | NUR ---
REPORT REGARDING PT HEALTH INFORMATIONS GIVEN TO WOJCIECH JANG FROM [facility]. SHE SAID ACCEPTING [facility].
[2020-05-20] MEDS ORDERED: FER325 PO (21:54)
[2020-05-20] MEDS ORDERED: METO25TA PO (21:54)
[2020-05-20] MEDS ORDERED: PROC4I IV (21:54)
[2020-05-20] MEDS ORDERED: HEPA500056 SUBQ (21:54)
[2020-05-20 22:05] VITALS: BP 158/99
--- NOTE | 2020-05-20 23:00 | NUR ---
TRANSFERRED PT TO [facility] BY [facility] TRANSPORT ROOM T1 369 PT IS IN STABLE CONDITION WITH O22L.NC. ALL PERSONAL BELONGINGS WITH PT. ID BAND REMOVED. IV ACCESS WITH PT. ALL DC PAPERS GIVEN TO TRANSPORTER TO BE HANDED TO WOJCIECH JANG IN [facility] .
[2020-05-21] MEDS ORDERED: AZITHROMYCIN 250 MG TAB PO SCH (09:00)
== END 2020-05-20 23:00 | disposition short-term general hospital (02) | DRG 545 ==
LOC: MED 16:45 → EEVIPCON 18:47 → MTU 18:47
PROVIDERS: ADMIT General Practice; ATTEND General Practice
PROC: 30233N1 Transfusion of Nonautologous Red Blood Cells into Peripheral Vein, Percutaneous Approach (ICD-10-PCS; principal; 2020-05-15)
DX: M32.14 Glomerular disease in systemic lupus erythematosus (principal); N17.0 Acute kidney failure with tubular necrosis; E43 Unspecified severe protein-calorie malnutrition; J18.9 Pneumonia, unspecified organism; I50.43 Acute on chronic combined systolic (congestive) and diastolic (congestive) heart failure; E87.1 Hypo-osmolality and hyponatremia; D68.69 Other thrombophilia; N18.4 Chronic kidney disease, stage 4 (severe); D50.9 Iron deficiency anemia, unspecified; E83.42 Hypomagnesemia; E83.39 Other disorders of phosphorus metabolism; E66.9 Obesity, unspecified; E78.5 Hyperlipidemia, unspecified; Z03.818 Encounter for observation for suspected exposure to other biological agents ruled out; Z68.34 Body mass index [BMI] 34.0-34.9, adult
CPT/HCPCS: 36415; 47500; 71045; 78582; 80048; 80053; 80305; 81001; 82272; 82570; 82575; 82607; 82728; 82746; 83036; 83540; 83605; 83615; 83735; 83880; 84100; 84443; 85025; 85045; 85379; 85610; 85651; 85730; 86038; 86140; 86160; 86886; 86900; 86901; 86920; 87070; 87081; 87086; 87804; 93970; 96360; 96361; 99285; J0696; J0885; J1644; J2270; J2916; J2930; J3475; J3490; J7030; J7060; P9016; Q0092; U0003-CS